=== PATIENT | female | born 1970 | race Two or more races ===

== ENCOUNTER 2023-03-19 13:48 | Emergency (ER) | payer MEDICAID ==
[~2023-03-19] VITALS: Ht 152.4 cm; Wt 110.6 kg
[2023-03-19] MEDS ORDERED: KETOROLAC TROMETH 60MG/2ML VIAL IM ONE (15:00)
[2023-03-19] MEDS ORDERED: HYDR-4902 PO (15:50)
[2023-03-19 16:53] VITALS: BP 151/90
== END 2023-03-19 17:07 | disposition home or self-care (01) ==
LOC: ER 13:48
DX: S93.602A Unspecified sprain of left foot, initial encounter (principal); E11.9 Type 2 diabetes mellitus without complications; X50.1XXA Overexertion from prolonged static or awkward postures, initial encounter; Y93.89 Activity, other specified; Y92.89 Other specified places as the place of occurrence of the external cause; Y99.8 Other external cause status
CPT/HCPCS: 73610; 73630; 96372; 99284; J1885

== ENCOUNTER 2024-01-28 14:21 | Emergency (ER) | payer MEDICAID ==
[~2024-01-28] VITALS: Ht 162.6 cm; Wt 110.0 kg
[~2024-01-28 14:21] MED LIST: HYDR-4902 PO
[2024-01-28 15:16] LABS: Basophils # (auto) 0 10 ^3/uL (0-0.2); Basophils % (auto) 0.6 % (0.0-2.0); Eosinophils # (auto) 0 10 ^3/uL (0-0.8); Eosinophils % (auto) 0.2 % (0.0-7.0); Hematocrit 41.1 % (36.0-46.0); Hemoglobin 13.6 g/dL (12.2-16.2); Lymphocytes # (auto) 1.3 10 ^3/uL (0.4-5.4); Lymphocytes % (auto) 17.3 % (10.0-50.0); Mean Corpuscular Hemoglobin 28.3 pg (28.0-32.0); Mean Corpuscular Hgb Conc. 33.1 g/dL (32.0-36.0); Mean Corpuscular Volume 85.5 fL (80.0-100.0); Monocytes # (auto) 0.2 10 ^3/uL (0-1.3); Monocytes % (auto) 2.5 % (0.0-12.0); Neutrophils # (auto) 6.2 10 ^3/uL (1.6-8.6); Neutrophils % (auto) 79.4 % (37.0-80.0); Red Cell Distribution Width 14.1 % (11.8-14.3); White Blood Cell 7.8 10^3/uL (4.4-10.8)
[2024-01-28 15:38] LABS: Chloride 107 mmol/L (98-107); Potassium 4.1 mmol/L (3.5-5.1)
[2024-01-28 15:39] LABS: Carbon Dioxide 27 mmol/L (20-30)
[2024-01-28 15:40] LABS: Calcium 9.6 mg/dL (8.5-10.1)
[2024-01-28 15:45] LABS: BUN/Creatinine Ratio 22.4 (10.0-20.0); Blood Urea Nitrogen 11 mg/dL (9-23); Glucose 155 mg/dL (74-106)
[2024-01-28 16:05] LABS: Anion Gap 5 (5-15); Sodium 139 mmol/L (136-145)
[2024-01-28] MEDS: MECLIZINE HCL 25 MG TAB PO ONE (18:19)
[2024-01-28 19:34] VITALS: BP 121/66; PULSE 73; RESP 19; TEMP 97.9; O2SAT 95
[2024-01-28 19:38] LABS: Urine Bacteria FEW /hpf (None Seen); Urine Blood Negative /uL (Negative); Urine Clarity Turbid (Clear); Urine Color Yellow (Yellow); Urine Mucus MODERATE (None Seen); Urine Protein, UAD TRACE (Negative); Urine Specific Gravity 1.027 (1.001-1.035); Urine Urobilinogen Normal (Negative); Urine WBC 5 /hpf (0 - 5)
[2024-01-28] MEDS: PROCHLORPERAZINE EDISYLATE 5 MG/ML 2ML VIAL IV ONE (19:50)
[2024-01-28 19:52] LABS: Amphetamine Screen, Urine Neg (NEGATIVE); Barbiturate Scree,Urine Neg (NEGATIVE); Benzodiazephine Screen, Urine Neg (NEGATIVE); Cannabinoid Screen, Urine Neg (NEGATIVE); Cocaine Screen, Urine Neg (NEGATIVE); Opiate Scree,Urine Neg (NEGATIVE); Phencyclidine Screen, Urine Neg (NEGATIVE)
[2024-01-28] MEDS: cefTRIAXone 2GM/50ML D5W 50 ML IV ONE (19:57)
[2024-01-28] MEDS: HYDROcodone-ACET 7.5/325MG TAB PO ONE (20:04)
[2024-01-28] MEDS ORDERED: CEPH500T PO (21:46)
[2024-01-28] MEDS ORDERED: ACET-1304 PO (21:46)
[2024-01-28] MEDS ORDERED: PHEN95TA10 PO (21:46)
[2024-01-28] MEDS ORDERED: MECL-90 PO (21:46)
== END 2024-01-28 22:26 | disposition left against medical advice (07) ==
LOC: ER 14:21 → EDBD 14:21 → ER 22:26
DX: R42 Dizziness and giddiness (principal); N39.0 Urinary tract infection, site not specified; R51.9 Headache, unspecified; E11.9 Type 2 diabetes mellitus without complications; I10 Essential (primary) hypertension; Z79.899 Other long term (current) drug therapy
CPT/HCPCS: 36415; 70450; 71045; 80048; 80307; 81001; 83880; 84484; 85025; 93005; 96365; 96375; 99285; J0696; J0780; J8597